=== PATIENT | female | born 2000 | race Caucasian/White ===

== ENCOUNTER → 2020-08-29 | Outpatient (CLI) | payer BC ==
[2020-08-29 13:22] LABS: HEMOGLOBIN 12.6 gm/dl (12.3-15.3); RED BLOOD COUNT 4.25 M/UL (4.00-5.10); WHITE BLOOD COUNT 3.7 K/UL (4.5-11.0)
[2020-08-29 14:08] LABS: BUN/CREATININE RATIO 8 (0-10)
== END ==
LOC: LAB 12:35
PROVIDERS: Internal Medicine
DX: M32.9 Systemic lupus erythematosus, unspecified (principal); R76.0 Raised antibody titer; E61.1 Iron deficiency; D72.819 Decreased white blood cell count, unspecified; Z92.29 Personal history of other drug therapy
CPT/HCPCS: 36415; 80053; 81001; 82570; 82728; 84156; 85025; 85652; 86140